=== PATIENT | male | born 1935 | race Caucasian/White ===

== ENCOUNTER → 2016-07-27 | Outpatient (CLI) | payer MEDICARE ==
[~2016-07-27] MED LIST: GADOBUTROL 10 MMOL/10 ML VIAL ONE
== END | disposition home or self-care (01) ==
LOC: RAD 10:15
PROVIDERS: ATTEND Urology
DX: I25.10 Atherosclerotic heart disease of native coronary artery without angina pectoris (principal); E11.9 Type 2 diabetes mellitus without complications; J44.9 Chronic obstructive pulmonary disease, unspecified; N40.1 Benign prostatic hyperplasia with lower urinary tract symptoms; R33.9 Retention of urine, unspecified; R97.20 Elevated prostate specific antigen [PSA]
CPT/HCPCS: 36415; 72197; 82565; A9585

== ENCOUNTER → 2016-07-29 | Outpatient (CLI) | payer MEDICARE | LOC: RAD 12:55 | PROVIDERS: ATTEND Urology | DX: Z02.9 Encounter for administrative examinations, unspecified (principal) ==